=== PATIENT | female | born 1975 | race Two or more races ===

== ENCOUNTER 2024-10-20 11:46 | Emergency (ER) | payer OTHER ==
[~2024-10-20] VITALS: Ht 167.6 cm; Wt 107.0 kg
[~2024-10-20 11:46] MED LIST: GLUMETZA500 MG; LOSARTAN-HCTZ1 EAC2 PO; PROMETHAZINE W118 ML PO; XOPENEX1.25 MG/0. IH
[2024-10-20] MEDS ORDERED: INSULIN REGULAR, HUMAN 1,000 UNIT/10 ML UNITS SUBCUTANEO ONE (13:15)
[2024-10-20] MEDS ORDERED: NIFEDIPINE 10 MG CAPSULE PO ONE (13:15)
[2024-10-20] MEDS ORDERED: 0.9 % SODIUM CHLORIDE 500 ML IV ONE (13:15)
[2024-10-20 13:25] LABS: BASO % 0.3 % (0.1-1.2); EOS # 0.10 (0.04-0.54); EOS % 1.6 % (0.7-7.0); LYMPH # 2.09 (1.18-3.74); LYMPH % 33.6 % (19.3-53.1); MEAN PLATELET VOLUME 9.20 fl (9.4-12.4); MONO # 0.39 (0.24-0.82); MONO % 6.3 % (4.7-12.5); NEUT # 3.61 (1.56-6.13); NEUT % 58.0 % (34.0-71.1); RED CELL DISTRIBUTION WIDTH 11.2 % (11.6-14.4)
[2024-10-20 13:59] LABS: COVID-19 AG NEGATIVE (NEGATIVE)
[2024-10-20 13:59] LABS: ALT/SGPT 40.0 U/L (12-78); AST/SGOT 24.0 U/L (15-37); BILIRUBIN TOTAL 0.44 mg/dL (0.3-1.2); BUN CREA RATIO 29.0 (7.0-25.0); CREATININE SERUM 0.7 mg/dL (0.55-1.02); GFR 88.57; GLOBULINA 4.1 G/DL (2.4-3.5); OSMOLALITY SERUM 292.0 MOSM/KG (275-295)
[2024-10-20 14:02] LABS: GLUCOSE FASTING 340.0 mg/dL (65-100)
[2024-10-20] MEDS ORDERED: COZAAR25 MG PO (14:11)
[2024-10-20] MEDS ORDERED: METFORMIN HCL850 MG PO (14:11)
== END 2024-10-20 14:23 | disposition home or self-care (01) ==
LOC: ER 11:46
PROVIDERS: General Practice
DX: I10 Essential (primary) hypertension (principal); E11.9 Type 2 diabetes mellitus without complications; Z79.84 Long term (current) use of oral hypoglycemic drugs; Z20.822 Contact with and (suspected) exposure to COVID-19